=== PATIENT | male | born 1945 | race Caucasian/White ===

== ENCOUNTER 2017-01-11 04:16 | Emergency (ER) | payer MEDICARE ==
[~2017-01-11] VITALS: Ht 177.8 cm; Wt 80.2 kg
[2017-01-11] MEDS ORDERED: ALBUTEROL/IPRATROPIUM 2.5MG/0.5MG, 3 ML NPPB SCH (05:00)
[2017-01-11] MEDS ORDERED: SODIUM CHLORIDE FLUSH 10ML SYR IVF ONE (05:00)
[2017-01-11 05:26] LABS: HEMOGLOBIN 19.7 g/dL (13.7-18.0)
[2017-01-11 05:31] LABS: BLOOD UREA NITROGEN 30 mg/dL (7-18)
[2017-01-11 05:40] LABS: ASPARTATE AMINO TRANSFERASE 20 U/L (15-37); IS PT STATUS REG ER OR PRE ER? YES
[2017-01-11 06:32] VITALS: BP 152/88
== END 2017-01-11 10:29 | disposition home or self-care (01) ==
LOC: ED 05:12
DX: J44.1 Chronic obstructive pulmonary disease with (acute) exacerbation (principal); I10 Essential (primary) hypertension; J96.01 Acute respiratory failure with hypoxia
CPT/HCPCS: 36415; 71010; 80053; 83880; 84484; 85025; 87081; 87147; 87880; 93005; 94640; 99291; J7512; J7620